=== PATIENT | female | born 1990 | race American Indian/Alaskan Native ===

== ENCOUNTER 2021-11-18 08:06 | Outpatient (CLI) | payer OTHER ==
--- NOTE | 2021-11-18 09:12 | Ultrasound Report ---
EXAMINATION: Right Limited Breast Ultrasound, 11/18/2021 INDICATION: The patient reports a palpable lump in the right breast. COMPARISON: None. FINDINGS: Targeted ultrasound evaluation was performed of the area of interest. Sonographic evaluati on of the patient's area of palpable concern at the 11:00 position 6 cm from the nipple demonstrates a round simple cyst measuring 8 mm. There is an additional adjacent cyst also at the 11:00 position m easuring 5 mm. There is no suspicious solid mass or shadowing. IMPRESSION: 1. Palpable right breast cyst as described representing a benign finding. Follow up recommendation: Clinical exam BI-RADS Category 2: BENIGN. A normal or "negative" report should not preclude biopsy or follow-up of a clinically suspicious find ing. Signer Name: Misty Moran MD Signed: 11/18/2021 9:07 AM Workstation Name: [id number]
== END 2021-11-18 08:07 | disposition home or self-care (01) ==
LOC: MAMMO 08:06
PROVIDERS: ATTEND Nurse Practitioner
DX: N60.01 Solitary cyst of right breast (principal)